=== PATIENT | female | born 1975 | race Caucasian/White ===

== ENCOUNTER 2017-03-27 17:32 | Emergency (ER) | payer MEDICARE ==
[2017-03-27] MEDS ORDERED: ACETAMINOPHEN 325 MG TABLET PO ONE (18:56)
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
--- NOTE | 2017-03-27 19:43 | RADIOLOGY REPORT (SQ) ---
EXAM DESCRIPTION: CT FACIAL AREA WITHOUT COMPLETED DATE/TIME: 03/27/2017 7:20 pm REASON FOR STUDY: eval for orbital or mentum fracture COMPARISON: None. TECHNIQUE: Noncontrasted images through the facial bones and orbits windowed for bone and soft tissu e. Additional coronal and sagittal reconstructed images reviewed. All images stored on PACS. All CT scanners at this facility use dose modulation, iterative reconstruction, and/or weight based d osing when appropriate to reduce radiation dose to as low as reasonably achievable (ALARA). [facility]: Dose Right [facility]: CareDose [facility]: Dose Right [facility]: Teradose 4D [facility]: Smart [place] DIGITALE RADIATION DOSE: mGy. LIMITATIONS: None. FINDINGS: FACIAL BONES: No fracture or bone lesion. ORBITS: Intact. No fracture. Symmetric intact globes and retroorbital soft tissues. PARANASAL SINUSES: Clear. No significant mucosal thickening, mass or fluid. No nasal polyps. Maxill zohaib sinus outlets are patent. SOFT TISSUES: No mass or edema. INFERIOR BRAIN: Limited view. No acute findings. OTHER: No other significant finding. IMPRESSION: NO ACUTE FINDINGS. TECHNICAL DOCUMENTATION: JOB ID: [id number] Quality ID # [id number]: Final reports with documentation of one or more dose reduction techniques (e.g., Au tomated exposure control, adjustment of the mA and/or kV according to patient size, use of iterative reconstruction technique) 2010 [employer]- All Rights Reserved
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
[2017-03-27 23:12] LABS: ABSOLUTE EOSINOPHILS # (AUTO) 0.4 10^3/uL (0.0-0.6); ABSOLUTE LYMPHOCYTES (AUTO) 1.2 10^3/uL (0.5-4.7); ABSOLUTE MONOCYTES (AUTO) 0.8 10^3/uL (0.1-1.4); ABSOLUTE NEUT (AUTO) 3.7 10^3/uL (1.7-8.2); BASOPHILS % (AUTO) 0.6 % (0-2); EOSINOPHILS % (AUTO) 6.2 % (0-6); HEMOGLOBIN 12.4 g/dL (12.0-15.5); HGB HCT DIFFERENCE 1.2; LYMPHOCYTES % (AUTO) 20.2 % (13-45); MEAN CORPUSCULAR HEMOGLOBIN 32.2 pg (27.0-33.4); MEAN CORPUSCULAR HGB CONC 34.4 g/dL (32.0-36.0); MEAN CORPUSCULAR VOLUME 94 fl (80-97); MONOCYTES % (AUTO) 12.4 % (3-13); RED BLOOD COUNT 3.84 10^6/uL (3.72-5.28); RED CELL DISTRIBUTION WIDTH 13.7 % (11.5-14.0); SEGMENTED NEUTROPHILS % (AUTO) 60.6 % (42-78)
[2017-03-27 23:25] LABS: ALANINE AMINOTRANSFERASE 43 U/L (9-52); ALBUMIN 3.7 g/dL (3.5-5.0); ALKALINE PHOSPHATASE 94 U/L (38-126); ANION GAP 12 (5-19); ASPARTATE AMINO TRANSFERASE 26 U/L (14-36); BILIRUBIN,DIRECT 0.4 mg/dL (0.0-0.4); BILIRUBIN,TOTAL 0.5 mg/dL (0.2-1.3); BLOOD UREA NITROGEN 6 mg/dL (7-20); CALCIUM 9.4 mg/dL (8.4-10.2); CARBON DIOXIDE 22 mmol/L (22-30); CHLORIDE 111 mmol/L (98-107); CREATININE RESULT 1.19 mg/dL (0.52-1.25); GLUCOSE 111 mg/dL (75-110); LITHIUM 0.5 mEq/L (0.6-1.2); POTASSIUM 3.6 mmol/L (3.6-5.0); SODIUM 144.6 mmol/L (137-145); TOTAL PROTEIN 6.2 g/dL (6.3-8.2)
[2017-03-27 23:26] LABS: ALCOHOL < 10 mg/dL (NONE DETECTED)
[2017-03-28 00:07] LABS: APPEARANCE,URINE SLIGHTLY-CLOUDY; BILIRUBIN,URINE NEGATIVE (NEGATIVE); GLUCOSE, URINE NEGATIVE (NEGATIVE); KETONES,URINE NEGATIVE (NEGATIVE); LEUKOCYTE ESTERASE,URINE NEGATIVE (NEGATIVE); NITRITE,URINE NEGATIVE (NEGATIVE); PROTEIN,URINE NEGATIVE (NEGATIVE); URINE SPECIFIC GRAVITY 1.011; UROBILINOGEN,URINE NEGATIVE mg/dL (<2.0)
[2017-03-28 00:33] LABS: URINE BARBITURATES SCREEN NEGATIVE; URINE METHADONE SCREEN NEGATIVE; URINE OPIATES LOW NEGATIVE; URINE PHENCYCLIDINE SCREEN NEGATIVE
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
[2017-03-28] MEDS ORDERED: LITHIUM CARBONATE 300 MG CAPSULE PO ONE ×2 (00:45→11:52)
[2017-03-28] MEDS ORDERED: RISPERIDONE 1 MG TABLET PO ONE ×2 (00:45→11:52)
--- NOTE | 2017-03-28 05:25 | EKG REPORT ---
SEVERITY:- ABNORMAL ECG - SINUS RHYTHM NONSPECIFIC T ABNORMALITIES, INFERIOR LEADS : Confirmed by: Nikky Hunt 28-Mar-2017 05:24:27
--- NOTE | 2017-03-28 10:15 | ER Document Report ---
Doctor's Note Notes: 03/28/17 10:12 Rounds: Chart reviewed and patient interviewed. Vital signs are all normal. Lab studies were essentially normal except for the lithium level of 0.5, just short of therapeutic value. Patient's test is negative and patient is made aware that she is not . Being evaluated for bipolar disorder, having been off of her medications, although she says she has been taking them for the last few days. Patient appears to be medically stable for transfer or discharge. Javier Castellano MD
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
[2017-03-28 14:07] VITALS: BP 150/94
== END 2017-03-28 13:40 | disposition home or self-care (01) ==
LOC: ER 17:32
DX: F39 Unspecified mood [affective] disorder (principal); S00.83XA Contusion of other part of head, initial encounter; S00.12XA Contusion of left eyelid and periocular area, initial encounter; S00.11XA Contusion of right eyelid and periocular area, initial encounter; S90.32XA Contusion of left foot, initial encounter; S70.12XA Contusion of left thigh, initial encounter; S70.11XA Contusion of right thigh, initial encounter; Y04.0XXA Assault by unarmed brawl or fight, initial encounter; F17.210 Nicotine dependence, cigarettes, uncomplicated
CPT/HCPCS: 93005; 99285; 36415; 80307 ×4; 80178; 85025; 81025; 80053; 81001; 70450; 70486; 93010; A9270; J3490

== ENCOUNTER 2017-06-19 05:10 | Emergency (ER) | payer MEDICARE ==
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
[2017-06-19 06:58] LABS: ABSOLUTE EOSINOPHILS # (AUTO) 0.1 10^3/uL (0.0-0.6); ABSOLUTE LYMPHOCYTES (AUTO) 0.9 10^3/uL (0.5-4.7); ABSOLUTE MONOCYTES (AUTO) 0.5 10^3/uL (0.1-1.4); ABSOLUTE NEUT (AUTO) 6.2 10^3/uL (1.7-8.2); BASOPHILS % (AUTO) 0.4 % (0-2); EOSINOPHILS % (AUTO) 1.8 % (0-6); HEMATOCRIT 37.8 % (36.0-47.0); HEMOGLOBIN 13.1 g/dL (12.0-15.5); MEAN CORPUSCULAR HEMOGLOBIN 30.9 pg (27.0-33.4); MEAN CORPUSCULAR HGB CONC 34.5 g/dL (32.0-36.0); MEAN CORPUSCULAR VOLUME 89 fl (80-97); MONOCYTES % (AUTO) 6.8 % (3-13); PLATELET COUNT 271 10^3/uL (150-450); RED BLOOD COUNT 4.23 10^6/uL (3.72-5.28); RED CELL DISTRIBUTION WIDTH 14.6 % (11.5-14.0); TOTAL CELLS COUNTED % (AUTO) 100 %; WHITE BLOOD COUNT 7.9 10^3/uL (4.0-10.5)
[2017-06-19 07:02] LABS: APPEARANCE,URINE CLEAR; BILIRUBIN,URINE NEGATIVE (NEGATIVE); COLOR,URINE STRAW; GLUCOSE, URINE NEGATIVE (NEGATIVE); KETONES,URINE TRACE mg/dL (NEGATIVE); LEUKOCYTE ESTERASE,URINE TRACE (NEGATIVE); NITRITE,URINE NEGATIVE (NEGATIVE); PROTEIN,URINE NEGATIVE (NEGATIVE); URINE SPECIFIC GRAVITY 1.002; UROBILINOGEN,URINE NEGATIVE mg/dL (<2.0)
[2017-06-19 07:14] LABS: URINE AMPHETAMINES SCREEN NEGATIVE; URINE BARBITURATES SCREEN NEGATIVE; URINE BENZODIAZEPINES SCREEN NEGATIVE; URINE COCAINE SCREEN NEGATIVE; URINE MARIJUANA (THC) SCREEN UNCONFIRMED POSITIVE; URINE METHADONE SCREEN NEGATIVE; URINE PHENCYCLIDINE SCREEN NEGATIVE
[2017-06-19 07:19] LABS: ALANINE AMINOTRANSFERASE 35 U/L (9-52); ALBUMIN 4.3 g/dL (3.5-5.0); ALKALINE PHOSPHATASE 97 U/L (38-126); ANION GAP 12 (5-19); ASPARTATE AMINO TRANSFERASE 19 U/L (14-36); BILIRUBIN,DIRECT 0.3 mg/dL (0.0-0.4); BILIRUBIN,TOTAL 0.9 mg/dL (0.2-1.3); BLOOD UREA NITROGEN 3 mg/dL (7-20); CALCIUM 9.5 mg/dL (8.4-10.2); CARBON DIOXIDE 20 mmol/L (22-30); CHLORIDE 113 mmol/L (98-107); GLUCOSE 140 mg/dL (75-110); SODIUM 145.3 mmol/L (137-145); TOTAL PROTEIN 6.9 g/dL (6.3-8.2)
[2017-06-19 07:20] LABS: ACETAMINOPHEN < 10 ug/mL (10-30); ALCOHOL < 10 mg/dL (NONE DETECTED); LITHIUM < 0.2 mEq/L (0.6-1.2)
[2017-06-19 07:21] LABS: SALICYLATE < 1.0 mg/dL (2.0-20.0)
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
[2017-06-19] MEDS ORDERED: POTASSIUM CHLORIDE 10 MEQ TABLET.SA PO ONE (09:14)
--- NOTE | 2017-06-19 09:35 | ER Document Report ---
Doctor's Note Notes: 06/19/17 09:34 Patient seen here yesterday but under different name. Trying to merge charts at this time. Was subsequently discharged and cleared by mental health. Please see physician's note from earlier this morning where she was found in a dumpster. Patient denies any complaints at this time. Labs showed some hypokalemia so has been prescribed some potassium this morning. We will continue to follow today. 06/19/17 11:33 Patient does have some hypokalemia which was treated. She is eating and drinking at this time. Mental health team does not feel like there is anything further they can offer her at this time. I will repeat the chemistry to see if everything is corrected. Will follow recommendations from the mental health team. 06/19/17 13:56 Repeat potassium level is normalized. Patient is eating and drinking. No acute distress. At this time comfortable discharging. Discharge - Discharge Clinical Impression: Drug abuse, Schizoaffective disorder, bipolar type, Hypokalemia Condition: Stable Disposition: HOME, SELF-CARE Instructions: Hypokalemia ([facility]), Schizophrenia ([facility]) Additional Instructions: FOLLOW-UP CARE: Please follow up with [facility] in 3-5 days for substance abuse and mental health treatment. If you experience worsening or a significant change in your symptoms, notify the physician immediately or return to the Emergency Department at any time for re-evaluation. Prescriptions: Lorazepam [Ativan 0.5 mg Tablet] 0.5 mg PO TID 4 Days #12 tab Referrals: [facility] [Outside] - Follow up in 3-5 days
[2017-06-19 13:00] LABS: ANION GAP 14 (5-19); BLOOD UREA NITROGEN 3 mg/dL (7-20); CALCIUM 9.5 mg/dL (8.4-10.2); CARBON DIOXIDE 20 mmol/L (22-30); CHLORIDE 112 mmol/L (98-107); GLUCOSE 83 mg/dL (75-110); POTASSIUM 3.5 mmol/L (3.6-5.0); SODIUM 146.3 mmol/L (137-145)
[2017-06-19 14:15] VITALS: BP 154/80
== END 2017-06-19 14:13 | disposition home or self-care (01) ==
LOC: ER 05:10
DX: F25.0 Schizoaffective disorder, bipolar type (principal); F19.10 Other psychoactive substance abuse, uncomplicated; E87.6 Hypokalemia; Z88.0 Allergy status to penicillin; F17.200 Nicotine dependence, unspecified, uncomplicated
CPT/HCPCS: 99285; 36415; 87086; 80307 ×4; 80178; 85025; 87088; 80048; 80053; 81001; 87186; A9270

== ENCOUNTER 2017-06-28 17:52 | Emergency (ER) | payer MEDICARE ==
[2017-06-28 18:23] VITALS: BP 157/90
--- NOTE | 2017-06-28 18:56 | ER Document Report ---
ED Medical Screen (RME) - General Chief Complaint: Medication Refill Stated Complaint: PSYCH Time Seen by Provider: 06/28/17 18:54 Mode of Arrival: Ambulatory Information source: Patient Notes: 42-year-old female with a psychiatric disorder just left AMA from the floor today presents to the emergency room wanting a prescription for her psychiatric medicines. I have discussed the case with Dr. Lee who is told me that the patient has her medicines and she is followed at [facility] and that the patient does not need any medicine scripts to be given. The patient denies any homicidal or suicidal patient. TRAVEL OUTSIDE OF THE [place] IN LAST 30 DAYS: No - HPI Onset: Just prior to arrival Onset/Duration: Sudden Quality of pain: No pain Severity: None Pain Level: Denies Associated Symptoms: None Exacerbated by: Denies Relieved by: Denies Similar symptoms previously: No Recently seen / treated by doctor: No - Related Data Smoking: Non-smoker Frequency of alcohol use: None Drug Abuse: None Allergies/Adverse Reactions: carbamazepine [From Tegretol] Allergy (Verified 06/28/17 18:01) diphenhydramine HCl [From Benadryl] Allergy (Verified 06/28/17 18:01) olanzapine [From Zyprexa] Allergy (Verified 06/28/17 18:01) Penicillins Allergy (Verified 06/28/17 18:01) Sulfa (Sulfonamide Antibiotics) Allergy (Verified 06/28/17 18:01) Past Medical History - General Information source: Patient - Social History Cigarette use (# per day): No Chew tobacco use (# tins/day): No Frequency of alcohol use: None Drug Abuse: None Lives with: Family Family history: None - Past Medical History Cardiac Medical History: Reports: Hx Hypertension Renal/ Medical History: Denies: Hx Peritoneal Dialysis Psychiatric Medical History: Reports: Hx Bipolar Disorder, Hx Schizophrenia - Immunizations Hx Diphtheria, Pertussis, Tetanus Vaccination: No Review of Systems - Review of Systems Constitutional: denies: Chills, Fever EENT: No symptoms reported Cardiovascular: No symptoms reported Respiratory: No symptoms reported Gastrointestinal: No symptoms reported. denies: Abdominal pain, Vomiting Genitourinary: No symptoms reported Female Genitourinary: No symptoms reported Musculoskeletal: No symptoms reported. denies: Back pain Skin: No symptoms reported Hematologic/Lymphatic: No symptoms reported Neurological/Psychological: See HPI. denies: Hallucinations, Homicidal ideation , Suicidal ideation Physical Exam - Vital signs Vitals: Temp Pulse Resp BP Pulse Ox 97.7 F 98 18 157/90 H 99 06/28/17 18:22 06/28/17 18:22 06/28/17 18:22 06/28/17 18:22 06/28/17 18:22 Notes: Physical exam: GENERAL: 22-year-old female, alert and oriented 3, no acute distress HEAD: Atraumatic, normocephalic. EYES: Pupils equal round and reactive to light, extraocular movements intact, sclera anicteric, conjunctiva are normal. ENT: TMs normal, nares patent, oropharynx clear without exudates. Moist mucous membranes. NECK: Normal range of motion, supple without obvious mass or JVD. LUNGS: Breath sounds clear to auscultation bilaterally and equal. No wheezes rales or rhonchi. HEART: Regular rate and rhythm without murmurs, rubs or gallops. ABDOMEN: Soft, normoactive bowel sounds. No tenderness to palpation. No guarding, no rebound. No masses appreciated. EXTREMITIES: Normal range of motion, no pitting or edema. No clubbing or cyanosis. NEUROLOGICAL: Cranial nerves II through XII grossly intact. Normal speech, moving all extremities. PSYCH: Patient denies suicidal and homicidal ideations SKIN: Warm, Dry, normal turgor, no rashes or lesions noted. Course - Vital Signs Vital signs: Temp Pulse Resp BP Pulse Ox 97.7 F 98 18 157/90 H 99 06/28/17 18:22 06/28/17 18:22 06/28/17 18:22 06/28/17 18:22 06/28/17 18:22 Doctor's Discharge - Discharge Clinical Impression: Mood disorder Condition: Stable Disposition: HOME, SELF-CARE Additional Instructions: Follow-up at [facility]: Call the outpatient clinic tomorrow for evaluation and continuance of your medicines. Return to the ER for any thoughts of wanting to hurt yourself
== END 2017-06-28 19:08 | disposition home or self-care (01) ==
LOC: ER 17:52
DX: F39 Unspecified mood [affective] disorder (principal); I10 Essential (primary) hypertension; Z88.0 Allergy status to penicillin; Z88.2 Allergy status to sulfonamides
CPT/HCPCS: 99281